=== PATIENT | male | born 1955 | race African-American/Black ===

== ENCOUNTER 2016-07-04 12:22 | Observation (INO) | payer OTHER ==
[~2016-07-04] VITALS: Ht 190.5 cm; Wt 104.3 kg
--- NOTE | 2016-07-04 12:24 | NUR ---
TO EKG [facility].
--- NOTE | 2016-07-04 12:30 | NUR ---
PT TO ED C/O RIGHT ARM NUMBNESS AND TINGLING SINCE LAST NIGHT. ALSO C/O SOME FACIAL NUMBNESS LAST NIGHT. STATES R ARM IS STILL "TINGLY" BUT DENIES ANY PAIN. NO FACIAL DROPP NOTED, SPEAKING IN FULL SENTENCES.
--- NOTE | 2016-07-04 12:45 | ED GENERAL ADULT ---
History of Present Illness General Chief Complaint: General Adult Stated Complaint: SIB FOR NUMBNESS IN RG ARM POSSIBLE STROKE Source: patient, EMS Exam Limitations: no limitations Vital Signs & Intake/Output Vital Signs & Intake/Output Vital Signs Date Time Temp Pulse Resp B/P Pulse O2 O2 Flow FiO2 Ox Delivery Rate 07/04 1254 98 Room Air 07/04 1230 97.0 70 20 157/90 96 Room Air Allergies Coded Allergies: No Known Allergies (07/04/16) Reconcile Medications Diclofenac Sodium 75 MG TABLET. 1 TAB PO PRN PRN ARTHRITIS (Reported) Simvastatin (Simvastatin*) 20 MG TABLET 1 TAB PO QPM CHOLESTEROL (Reported) Triage Note: PT TO ED C/O RIGHT ARM NUMBNESS AND TINGLING SINCE LAST NIGHT. ALSO C/O SOME FACIAL NUMBNESS LAST NIGHT. STATES R ARM IS STILL "TINGLY" BUT DENIES ANY PAIN. NO FACIAL DROPP NOTED, SPEAKING IN FULL SENTENCES. Triage Nurses Notes Reviewed? yes Onset: Abrupt Duration: day(s): Timing: recent history HPI: 07/04/16 1:23 PM 61-year-old man presents to the emergency department complaining of right arm numbness. According to the patient he was in his usual state of health until yesterday when he developed right-sided arm numbness approximately 1 PM. He also said that he had right-sided facial numbness and was dizzy. He said the symptoms lasted one to 2 hours. Over time they did resolve. Today he had a second episode of right sided arm numbness. Currently in the emergency department he has no symptoms. He denies chest pain, shortness of breath fever or other complaints. He does have a past medical history of hyperlipidemia. He has a past surgical history of neck and back surgery. He denies any drug allergies. He does not smoke. Occasionally drinks. He takes simvastatin. On physical exam he is hypertensive. He is very tall. He has good equal radial pulses. His neurological exam is normal he has a gag reflex and swallows water Past History Travel History Traveled to [place] past 21 day No Medical History Any Pertinent Medical History? see below for history Cardiovascular: hyperlipidemia Surgical History Surgical History: non-contributory Psychosocial History What is your primary language Albanian Tobacco Use: Never used ETOH Use: denies use Illicit Drug Use: denies illicit drug use Family History Hx Contributory? No Review of Systems Review of Systems Constitutional: Denies: fever. EENTM: Denies: visual changes. Respiratory: Denies: short of breath. Cardiovascular: Denies: chest pain. GI: Denies: abdominal pain. Genitourinary: Reports: no symptoms. Musculoskeletal: Reports: no symptoms. Skin: Reports: no symptoms. Neurological/Psychological: Reports: see HPI. Hematologic/Endocrine: Reports: no symptoms. Physical Exam Physical Exam General Appearance: well developed/nourished, alert, awake, anxious, mild distress Head: atraumatic, normal appearance Eyes: Bilateral: normal appearance, PERRL, EOMI. Ears, Nose, Throat: normal pharynx, normal ENT inspection Neck: normal inspection, supple, full range of motion Respiratory: normal breath sounds, chest non-tender, no respiratory distress Cardiovascular: regular rate/rhythm Peripheral Pulses: 4+ radial (R), 4+ radial (L) Gastrointestinal: soft, non-tender Back: normal range of motion Extremities: normal inspection, normal range of motion, no edema Neurologic/Psych: no motor/sensory deficits, awake, alert, oriented x 3 Skin: intact, normal color, warm/dry Core Measures ACS in differential dx? No CVA/TIA Diagnosis: Yes Severe Sepsis Present: No Septic Shock Present: No Progress Differential Diagnoses I considered the following diagnoses in my evaluation of the patient: [TIA, CVA, cervical radiculopathy, carotid artery dissection] Plan of Care: Orders Procedure Date/time Status Heart Healthy Diet 07/04 D Active URINALYSIS 07/04 1544 Active Pathway - chart 07/04 1535 Active Pathway - chart 07/04 1534 Active House Staff 07/04 1534 Active Patient Data 07/04 1534 Active Lab Add-on Test 07/04 1534 Active Code Status 07/04 1534 Active ECHOCARDIOGRAM 07/[address] in observation 07/04 1523 Active Vital Signs 07/04 1523 Active Code Status 07/04 1523 Complete Patient Data 07/04 1453 Active LIPID PANEL 07/04 1333 Complete TROPONIN LEVEL 07/04 1315 Complete PROTHROMBIN TIME 07/04 1315 Complete GLYCOSYLATED HGB 07/04 1315 Active COMPREHENSIVE METABOLIC PANEL 07/04 1315 Complete CBC WITHOUT DIFFERENTIAL 07/04 1315 Complete NIH Stroke Scale 07/04 1252 Active Intake & Output 07/04 1252 Active EKG 07/04 1224 Active VTE Mechanical Prophylaxis 07/04 UNK Active Telemetry/Loader 07/04 UNK Active Nursing Misc 07/04 UNK Active CMS- Neurovascular Checks 07/04 UNK Active PHYSICIAN CONSULT 07/[address] NECK ANGIOGRAM 07/04 UNK Active Current Medications Sig/Geoffrey Start time Last Medication Dose Stop Time Status Admin Aspirin 81 MG DAILY 07/05 1000 AC (Aspirin) Enoxaparin Sodium 40 MG DAILY 07/05 1000 AC (Lovenox) Atorvastatin Calcium 40 MG 1700 07/04 1700 AC (Lipitor) Acetaminophen 650 MG Q6P PRN 07/04 1600 AC (Tylenol) Laboratory Tests 07/04/16 1333: Anion Gap 10, Estimated GFR > 60, BUN/Creatinine Ratio 15.0, Glucose 86, Calcium 9.5, Total Bilirubin 0.6, AST 20, ALT 28, Alkaline Phosphatase 73, Troponin I < 0.01, Total Protein 7.4, Albumin 4.2, Globulin 3.2, Albumin/Globulin Ratio 1.3, Triglycerides 105, Cholesterol 179, LDL Cholesterol, Calc 113, HDL Cholesterol 45, Cholesterol/HDL Ratio 4, PT 12.2, INR 1.16, CBC w Diff NO MAN DIFF REQ, RBC 5.27, MCV 84.2, MCH 28.1, RDW 13.7, MPV 9.1, Gran % 47.8, Lymphocytes % 30.6, Monocytes % 16.9 H, Eosinophils % 4.1, Basophils % 0.6, Absolute Granulocytes 2.1, Absolute Lymphocytes 1.3, Absolute Monocytes 0.7 H, Absolute Eosinophils 0.2, Absolute Basophils 0, PUBS MCHC 33.4 07/04/16 1315: Hemoglobin A1c Pending Initial ED EKG: NSR Comments: Head CT negative. PATIENT: BERNICE DRISCOLL PRESENT AGE: 61 PATIENT ACCOUNT NO: [id number] : 54 LOCATION: [facility] ORDERING PHYSICIAN: GARRISON HUSSEIN DO SERVICE DATE: 07/04/16 EXAM TYPE: CAT - CT CERV SPINE WO IV CONTRAST; CT HEAD WO IV CONTRAST EXAMINATION: CT HEAD W/O IV CONTRAST CT CERVICAL SPINE W/O IV CONTRAST CLINICAL INFORMATION: 61-year-old male with right arm numbness. Possible cerebrovascular accident. COMPARISON: None TECHNIQUE: Head - Contiguous axial imaging of the head was performed from the skull base to the vertex without the administration of intravenous contrast, and axial images reconstructed at 0.625 mm , 2.5 mm and 5 mm slice thickness. Cervical spine - Volumetric, helical CT acquisition of the cervical spine was obtained without contrast; in addition to the standard set of axial images, multiplanar reformatted images were provided in the coronal and sagittal imaging planes. DLP: 979 mGy-cm (total) FINDINGS: HEAD: The ventricles have normal size and configuration. The sulci and basilar cisterns are unremarkable. There are no extra-axial fluid collections. No evidence of acute intracranial hemorrhage, territorial infarction, abnormal mass effect or midline shift. Pagan to white matter differentiation is well preserved. There is ossification along the falx. The calvarium is intact and the visualized paranasal sinuses, mastoid air cells and middle ear cavities are clear. The temporomandibular joints are unremarkable. The visualized orbits and globes are intact. CERVICAL SPINE: The cervical vertebral have normal height and alignment. No acute fracture, subluxation or prevertebral edema. The occipital condyles, atlas, axis and atlantoaxial articulation are intact. The C2-C3 and C3-C4 disc spaces are maintained. At C4-C5, there is minimal disc space narrowing, traction osteophyte formation, and suggestion of a small left paracentral disc protrusion. There is no significant narrowing of the central spinal canal. The left-sided facet hypertrophy causes mild left foraminal stenosis at this level. The patient is status post discectomy and solid fusion at C5-C6. At C6-C7, there is mild degenerative disc space narrowing, minimal disc bulge, traction osteophyte formation and uncovertebral joint hypertrophy. Small uncovertebral joint osteophytes produce mild bilateral foraminal stenosis at this level. At C7-T1, there is minimal uncovertebral joint hypertrophy without significant narrowing of the central canal or neural foramina. No paraspinal soft tissue mass or paraspinal fluid collection. Thyroid gland is unremarkable. The visualized lung apices are normal. IMPRESSION: 1. No acute intracranial pathology. 2. No acute fracture or malalignment in the cervical spine. 3. No evidence of significant central spinal canal or neural foraminal stenosis within the mildly degenerated spine. 4. Status post discectomy and fusion at C5-C6. DICTATED BY: GIOVANNI CORONEL MD DATE/TIME DICTATED:07/04/161343 CAMERA REPAIRER:ABDIRAHMAN DATE/TIME TRANSCRIBED:07/04/161343 CONFIDENTIAL, DO NOT COPY WITHOUT APPROPRIATE AUTHORIZATION. <Electronically signed in Other Vendor System> SIGNED BY: GIOVANNI CORONEL MD 07/04/16 9231 Departure Departure Disposition: STILL A PATIENT Condition: Stable Clinical Impression Primary Impression: TIA (transient ischemic attack) Referrals: GENNA COX DO (PCP/Family) Departure Forms: Customer Survey General Discharge Information Comments The patient has a gag reflex and tolerated water. Observation Note Spoke With: ETELVINA LAMA,RVAEN Physician Advisor Notified: YESENIA LAMA,RICKY [facility] Patient In: Non-ED OBS Care Area Rationale for Observation: My rational for observation is as follows [the patient needs neurology consultation, neuro checks every 6 hours, telemetry monitoring]. Critical Care Note Critical Care Note Critical Care Time: non-applicable
[2016-07-04] MEDS ORDERED: SIMVASTATIN20 M2 PO (12:53)
[2016-07-04] MEDS ORDERED: DICLOFENAC SODI75 M2 PO (12:53)
--- NOTE | 2016-07-04 12:55 | NUR ---
61 YEAR OLD MALE STATES THAT HE WENT TO A SPIN CLASS YESTERDAY AND AFTER THE CLASS HE NOTED THAT HE WAS HAVING R ARM NUMBNESS, FELT LIKE THE RIGHT SIDE OF HIS MOUTH HAD NOVACAINE INJECTED INTO IT , DENIES ANY SLURRED SPEECH, ALSO STATES THAT HE HAD NUMBNESS IN HIS R ARM, PT STATES THAT HE HAS A HISTORY OF NECK AND BACK SURGERY , DENIES CP/SOB/ABD PAIN OR ANY URINARY SYMPTOMS. NIH SCALE 0 AT THIS TIME, SPEECH CLEAR. DR HUSSEIN AT BEDSIDE. PT DENIES ANY HEADACHES
--- NOTE | 2016-07-04 13:19 | NUR ---
PT TO CT SCAN
[2016-07-04 13:50] LABS: ABSOLUTE BASOPHIL COUNT 0 /CUMM (0.0-0.2); ABSOLUTE EOSINOPHIL COUNT 0.2 /CUMM (0.0-0.7); ABSOLUTE GRANULOCYTE CT 2.1 /CUMM (1.4-6.5); ABSOLUTE LYMPH COUNT 1.3 /CUMM (1.2-3.4); ABSOLUTE MONOCYTE COUNT 0.7 /CUMM (0.10-0.60); BASOPHIL % 0.6 % (0.0-2.0); EOSINOPHIL % 4.1 % (0-5); GRANULOCYTE % 47.8 % (42.2-75.2); HEMATOCRIT 44.4 % (42-52); MEAN CORPUSCULAR HGB 28.1 PG (27.0-31.0); MEAN CORPUSCULAR HGB CONC 33.4 G/DL (33.0-37.0); MEAN CORPUSCULAR VOLUME 84.2 FL (80.0-94.0); MEAN PLATELET VOLUME 9.1 FL (7.4-10.4); PLATELET COUNT 194 /CUMM (130-400); RBC DISTRIBUTION WIDTH 13.7 % (11.5-14.5); RED BLOOD CELL CT 5.27 /CUMM (4.70-6.10); WHITE BLOOD CELL COUNT 4.4 /CUMM (4.8-10.8)
[2016-07-04 13:52] LABS: PT 12.2 SEC (9.4-12.5)
--- NOTE | 2016-07-04 13:58 | CT SCAN REPORT ---
EXAMINATION: CT HEAD W/O IV CONTRAST CT CERVICAL SPINE W/O IV CONTRAST CLINICAL INFORMATION: 61-year-old male with right arm numbness. Possible cerebrovascular accident. COMPARISON: None TECHNIQUE: Head - Contiguous axial imaging of the head was performed from the skull base to the vertex without the administration of intravenous contrast, and axial images reconstructed at 0.625 mm , 2.5 mm and 5 mm slice thickness. Cervical spine - Volumetric, helical CT acquisition of the cervical spine was obtained without contrast; in addition to the standard set of axial images, multiplanar reformatted images were provided in the coronal and sagittal imaging planes. DLP: 979 mGy-cm (total) FINDINGS: HEAD: The ventricles have normal size and configuration. The sulci and basilar cisterns are unremarkable. There are no extra-axial fluid collections. No evidence of acute intracranial hemorrhage, territorial infarction, abnormal mass effect or midline shift. Pagan to white matter differentiation is well preserved. There is ossification along the falx. The calvarium is intact and the visualized paranasal sinuses, mastoid air cells and middle ear cavities are clear. The temporomandibular joints are unremarkable. The visualized orbits and globes are intact. CERVICAL SPINE: The cervical vertebral have normal height and alignment. No acute fracture, subluxation or prevertebral edema. The occipital condyles, atlas, axis and atlantoaxial articulation are intact. The C2-C3 and C3-C4 disc spaces are maintained. At C4-C5, there is minimal disc space narrowing, traction osteophyte formation, and suggestion of a small left paracentral disc protrusion. There is no significant narrowing of the central spinal canal. The left-sided facet hypertrophy causes mild left foraminal stenosis at this level. The patient is status post discectomy and solid fusion at C5-C6. At C6-C7, there is mild degenerative disc space narrowing, minimal disc bulge, traction osteophyte formation and uncovertebral joint hypertrophy. Small uncovertebral joint osteophytes produce mild bilateral foraminal stenosis at this level. At C7-T1, there is minimal uncovertebral joint hypertrophy without significant narrowing of the central canal or neural foramina. No paraspinal soft tissue mass or paraspinal fluid collection. Thyroid gland is unremarkable. The visualized lung apices are normal. IMPRESSION: 1. No acute intracranial pathology. 2. No acute fracture or malalignment in the cervical spine. 3. No evidence of significant central spinal canal or neural foraminal stenosis within the mildly degenerated spine. 4. Status post discectomy and fusion at C5-C6.
--- NOTE | 2016-07-04 15:03 | History & Physical ---
DOLLY LOPEZ MD 07/04/16 1457: General Information and HPI Source of Information: patient, old records History of Present Illness: Patient is a 61-year-old male with past medical history of hyperlipidemia on atorvastatin, Right L5-S1 Microdiscectomy (05/30/2003), Cervical radiculopathy s /p C5-C6 anterior cervical diskectomy and fusion (01/20/2012), presented with chief complaint of right arm and facial numbness from one day. Patient claims that he was all right yesterday morning. One hour after coming from the spin class, he felt an episode of tingling and numbness on right side of face and right side of the upper limb. It was lasted for 30 minutes to 1 hour.He recovered completely without any residual weakness.He had this episodes 2 times yesterday and one time today, so he came to the emergency department for further evaluation and management.He also had an episode of dizziness when he changes his position from sitting to standing and when riding upstairs. Denies fever, chills, nausea, vomiting, headache, blurry vision, dehydration, trauma, weakness in any part of the body, confusion, chest pain, neck pain, stroke, hypertension. PMH - Hyperlipidemia Right L5-S1 Microdiscectomy 05/30/2003 Cervical radiculopathy s/p C5-C6 anterior cervical diskectomy and fusion 2011 Allergies-NKDA Personal history -denies smoking. 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 EENTM: Denies: no symptoms. Cardiovascular: Denies: no symptoms. Respiratory: Denies: no symptoms. GI: Denies: no symptoms. Genitourinary: Reports: frequency. Musculoskeletal: Denies: no symptoms. Skin: Denies: no symptoms. Neurological/Psychological: Reports: paresthesia, tingling. Exam & Diagnostic Data Last 24 Hrs of Vital Signs/I&O Vital Signs Date Time Temp Pulse Resp B/P Pulse O2 O2 Flow FiO2 Ox Delivery Rate 07/04 1850 98.3 74 18 142/90 96 Room Air 07/04 1846 Room Air 07/04 1818 97.4 68 18 166/90 97 Room Air Room Air 07/04 1609 97.8 66 18 162/88 97 Room Air Room Air 07/04 1254 98 Room Air 07/04 1230 97.0 70 20 157/90 96 Room Air Intake & Output 07/04 1600 07/04 0800 07/04 0000 Intake Total 0 Output Total Balance 0 Intake, Oral 0 Patient 104.326 kg Weight Physical Exam General Appearance Alert, Oriented X3, Cooperative, No Acute Distress Skin No Rashes, No Breakdown HEENT Atraumatic, PERRLA, EOMI Neck Supple, No JVD Cardiovascular Regular Rate, Normal S1, Normal S2 Lungs Clear to Auscultation, Normal Air Movement Abdomen Soft, No Tenderness Neurological Normal Gait, Normal Speech, Strength at 5/5 X4 Ext, Normal Tone, Sensation Intact, Cranial Nerves 3-12 NL, Reflexes 2+ Extremities No Clubbing, No Cyanosis, No Edema Vascular Normal Pulses, Pulses Symmetrical Assessment/Plan Assessment: Patient is a 61-year-old male with past medical history of hyperlipidemia on atorvastatin, Right L5-S1 Microdiscectomy (05/30/2003), Cervical radiculopathy s /p C5-C6 anterior cervical diskectomy and fusion (01/20/2012), presented with chief complaint of right arm and facial numbness from one day. Vital signs at the time of admission -temperature 90.7, pulse 70, respiratory rate 20, blood pressure 157/90, SPO2 96% on room air. Imaging CT head w/o IV contrast CT cervical spine w/o IV contrast 1. No acute intracranial pathology. 2. No acute fracture or malalignment in the cervical spine. 3. No evidence of significant central spinal canal or neural foraminal stenosis within the mildly degenerated spine. 4. Status post discectomy and fusion at C5-C6. Problem list - TIA under evaluation Hyperlipidemia Right L5-S1 Microdiscectomy 05/30/2003 Cervical radiculopathy s/p C5-C6 anterior cervical diskectomy and fusion 2011 Plan- * We did CT scan which shows no any acute changes including hemorrhage * We will start patient on aspirin 325mg OD PC * We will start patient on high-dose atorvastatin, 80mg OD PC HS * We will allow permissive hypertension,that means we will treat if patient will have BP >220/120. We will start patient on high-dose lisinopril 10mg OD after 24 hours * Neurochecks every Q4 * We will do MRI Brain to rule out stroke. As the patient has history of claustrophobia even. He denies to go to MRI because of claustrophobia. We convinced him and told that we can give him some sedation so that he will have less chance of it. We will give inj Ativan 1mg IV just before MRI. * We will do carotid Doppler to rule out any obstruction, thrombus in carotid arteries * We will do echocardiogram to rule out any cardiac causes of TIA * We placed neurologic consult and follow their recommendation * We will check HbA1c as he has significant family history of diabetes * We will do urinalysis as he was complaining of frequency of urination * Diet-low fat, heart healthy diet * DVT prophylaxis- ALPS/heparin * CODE STATUS- full code As Ranked By This Provider Problem List: 1. TIA (transient ischemic attack) 2. Hyperlipidemia 3. H/O microdiscectomy Core Measures/Miscellaneous Acute Coronary Syndrome ACS Diagnosis: No Cerebrovascular Accident CVA/TIA Diagnosis: Yes NIH Stroke Scale: Total 0 Congestive Heart Failure CHF Diagnosis: No Venous Thromboembolism VTE Risk Factors: Age > 40 VTE Prophylaxis Ordered Inpt: Mechanical (ALPS/TEDS) [facility] prophylaxis d/t: No contraindications No VTE Pharm Prophylaxis d/t: No contraindications VTE Diagnosis: No VTE Type: NONE VTE Confirmed by (Test): NONE Severe Sepsis Severe Sepsis Present: No Septic Shock Septic Shock Present: No Miscellaneous Documentation Attending Case Discussed With: PREET LAMA,ALEJANDRO Haley Primary Care Physician: GENNA COX DO Patient sees these Specialists no one Level of Patient Care: Telemetry CHRISTOPHER CARRILLO MD 07/04/16 1537: Resident Review Statement Resident Statement: examined this patient, discussed with application development intern, agreed with application development intern Other Findings: 61 y/o male with PMH of HLD and surgeries to the neck and back presenting to the ED with right arm numbness and tingling with right sided facial numbness after spin class yesterday. He had another episode of right arm numbness again yesterday. There was complete resolution of symptoms before the next episode. He had a 3rd episode of right arm numbness today which prompted him to come to the ED. He denies any involuntary movements, confusion, bowel or bladder incontinence, headaches, chest pain, palpitations etc. Has no symptoms while in the ED. Vitals in the ED: 97.0/70/20/157/90/96% on RA Exam: Neurologically intact CV: S1S2 heard, RRR Lungs: BCTA CT Head without contrast shows no acute intracranial pathology Problem List: * Rt arm numbness and tingling with facial numbness, now resolved R/O Stroke from ischemia vs carotid artery dissection vs vertebral artery dissection * Currently Hypertensive * Hyperlipidemia * Orthostatic Hypotension * Back and neck surgeries Plan: * Admit to telemetry for observation * Neurochecks Q4 * Permissive HTN for now (treat only above 220/120) * Aspirin and Statin * MRI Head, CTA neck, Carotid Dopplers, ECHO * Patient had claustrophobia and will be given 1 mg IV ativan before he goes to MRI * DVT PPx: SubQ Lovenox * Pain Pathway: Tylenol PRN * Code Status: Full Code ALEJANDRO OVIEDO MD 07/04/16 1613: Attending MD Review Statement Attending Statement Attending MD Statement: examined this patient, discuss w/resident/PA/MAILING MANAGER, agreed w/resident/PA/MAILING MANAGER, reviewed EMR data (avail), reviewed images Attending Assessment/Plan: 61 year old male with PMH hyperlipidemia on a statin here with acute episode of right arm numbness and ?weakness. BP on presentation is high with orthostatic hypotension. Given acuity of syx and recent spin class, will bring in to tele and treat for supecetd TIA. MRI (with ativan as pt is very claustrophobic), Echo and Asa and statin. Neurology consult. Given recent vigorous physical activity, will get CTA of the neck to look for carotid/verterbral a dissection. Neurochecks q 4, check HGBa1c, check UA and DVT prophylaxis.
--- NOTE | 2016-07-04 15:11 | NUR ---
PT UP TO USE URINAL AT THIS TIME.
--- NOTE | 2016-07-04 15:32 | NUR ---
PT CARE ASSUMED BY THIS RN AT THIS TIME. HOUSE STAFF TO BEDSIDE FOR EVAL. HEART HEALTHY TRAY ORDERED FOR PT.
--- NOTE | 2016-07-04 16:06 | NUR ---
PT TO US VIA STRETCHER AT THIS TIME.
--- NOTE | 2016-07-04 16:08 | RADIOLOGY REPORT ---
EXAMINATION: XR PORTABLE CHEST CLINICAL INFORMATION: Weakness. Rule out mass COMPARISON: 09/16/2014 TECHNIQUE: Portable view of the chest was obtained. FINDINGS: There are degenerative changes of the first costosternal junction bilaterally. 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 No focal consolidation or mass. No pleural effusion or pneumothorax. Normal pulmonary vascularity. Normal heart size. Regional skeleton intact. IMPRESSION: No acute pulmonary disease. No significant change from prior study.
--- NOTE | 2016-07-04 16:26 | NUR ---
PT ROOM ASSIGNMENT 180 BED 1 NURSE INFORMED
--- NOTE | 2016-07-04 16:37 | NUR ---
HOUSE STAFF TO BEDSIDE TO DISCUSS MRI WITH PT.
--- NOTE | 2016-07-04 16:47 | NUR ---
PT AGREEABLE TO MRI AT THIS TIME. UNABLE TO CONTACT MRI AT THIS TIME CALLED BOTH [phone] AND [phone] MULTIPLE TIMES WITH NO RESPONSE. ECHO AT BEDSIDE AT THIS TIME. HOUSE STAFF AWARE THAT THIS RN WAS NOT ABLE TO REACH MRI AT THIS TIME.
--- NOTE | 2016-07-04 16:56 | ULTRASOUND REPORT ---
EXAMINATION: US DUPLEX CAROTID AND VERTEBRAL CLINICAL INFORMATION: Right hand numbness and tingling. Facial numbness. Stroke evaluation. COMPARISON: None. TECHNIQUE: Real-time ultrasound and Doppler techniques (integrating B-mode 2D vascular images, Doppler spectral analysis and color flow Doppler imaging) were utilized to interrogate the extracranial carotid and vertebral arteries bilaterally. The degree of stenosis determined by criteria similar to NASCET. FINDINGS: RIGHT VESSELS - There is normal antegrade flow within the carotid and vertebral arteries. The grayscale images show widely patent carotid vessels. No evidence of ulcerated plaque or focal stenosis. Doppler derived peak systolic velocity measurements (cm/sec) were as follows: Distal CCA: 66 ICA: 108 (with end diastolic of 35) ECA: 80 Vertebral: 39 ICA/CCA ratio is 1.64 LEFT VESSELS - There is normal antegrade flow within the carotid and vertebral arteries. The grayscale images show widely patent carotid vessels. No evidence of ulcerated plaque or focal stenosis. Doppler derived peak systolic velocity measurements (cm/sec) were as follows: Distal CCA: 93 ICA: 106 (with end diastolic of 29) ECA: 70 Vertebral: 51 ICA/CCA ratio is 1.14 IMPRESSION: There is normal, antegrade flow within the examined vessels of the neck. No evidence of atherosclerotic disease or hemodynamically significant ICA stenosis.
--- NOTE | 2016-07-04 18:17 | NUR ---
PT TO AND FROM CAT SCAN VIA STRETCHER AT THIS TIME. REPORT GIVEN TO MARIN MONTES. DISTRIBUTION CALLED FOR PT TRANSPORT.
[2016-07-04 18:50] VITALS: BP 142/90
--- NOTE | 2016-07-04 19:36 | CT SCAN REPORT ---
EXAMINATION: CT ANGIOGRAM NECK CLINICAL INFORMATION: Right upper extremity tingling and numbness. Facial numbness. COMPARISON: Cervical spine CT scan same day. TECHNIQUE: Test bolus sequences followed by administration of 95 mL of Optiray 350 intravenous contrast. Helical imaging was performed in the axial plane of the neck. The data was processed at the human performance technologist workstation for generation of MIP sequences. Three-dimensional volume rendered reformatted images were also generated at an offline 3-D workstation. DLP: 1199.58 mGy-cm. FINDINGS: The aortic arch apex is normal and the origins of the major aortic branches are widely patent. Common carotid arteries and carotid bifurcations are normal. There is no internal carotid artery stenosis. The cervical segments of the vertebral arteries as well as their origins are widely patent. The petrous, cavernous, and supraclinoid segments of internal carotid arteries are normal. The intradural vertebral artery segments and basilar artery are normal. There is mild focal narrowing of the segment of the left posterior cerebral artery best visualized on sagittal MIP image 108 of 190 series 202. The visualized portions of the anterior, middle, and posterior cerebral artery complexes are otherwise unremarkable. There is no high-grade stenosis or proximal large vessel occlusion. Soft tissues of the neck including the thyroid gland are normal. Lung apices are clear. Chronic changes of an anterior cervical discectomy and fusion at C5-C6. There is mild junctional spondylosis above and below the fusion. There appears be at least mild canal stenosis at the levels of C4-C5 and C6-C7. Limited visualization of the intracranial structures reveals no abnormal finding. Specifically there is no midline shift or hydrocephalus. No mastoid or middle ear effusion. Paranasal sinuses are well-aerated. IMPRESSION: Unremarkable CT angiogram of the neck. Limited visualization of the intracranial vessels demonstrates mild focal narrowing of the P2 segment of the left posterior cerebral artery. Otherwise no high-grade stenosis or proximal large vessel occlusion within the intracranial vessels. There are chronic changes of an anterior cervical discectomy and fusion at C5-C6 with mild junctional spondylosis above and below the fusion. If there is a clinical concern for compressive myelopathy then a dedicated cervical spine MRI should be obtained.
--- NOTE | 2016-07-04 19:39 | ECHOCARDIOGRAM REPORT ---
BERNICE DRISCOLL Age: 61 : 1955 Gender: M Exam Date: 07/04/2016 16:49 Exam Location: ER Ht (in): 75 Wt (lb): 230 BSA: 2.37 BP: 157 / 90 Ordering Physician: CHRISTOPHER CARRILLO MD Referring Physician: CHRISTOPHER CARRILLO MD Technologist: Zenobia Davila RDCS Room Number: ER#12 Indications: LIGHTHEADEDNESS Rhythm: Sinus Technical Quality: Fair, Technically difficult study FINDINGS Left Ventricle Normal size left ventricle. No obvious regional wall motion abnormalities. Left ventricular wall thickness increased. Normal left ventricular ejection fraction estimated at 55-60%. Right Ventricle Normal right ventricular size and function. Right Atrium Normal right atrial size. Left Atrium Mild left atrial dilatation. Mitral Valve Mitral valve thickened. Trace to mild mitral regurgitation. Aortic Valve Trileaflet aortic valve. Diffuse thickening (sclerosis) of the aortic valve cusps without reduced excursion. No aortic stenosis. No aortic regurgitation. Tricuspid Valve Tricuspid valve not well visualized, grossly normal. Trace to mild tricuspid regurgitation. Right ventricular systolic pressure estimated at 24 mmHg. Pulmonic Valve Structurally normal pulmonic valve. Mild pulmonic regurgitation. Pericardium No pericardial effusion. Great Vessels Normal size aortic root and proximal ascending aorta. CONCLUSIONS 1. This was a technically difficult examination. 2. Mild aortic sclerosis is present with no valvular stenosis or insufficiency. 3. Mild mitral leaflet thickening is present with minimal to mild mitral insufficiency and mild left atrial enlargement. 4. There is no pericardial fluid detected. 5. The left ventricular chamber size and systolic function are normal with mild concentric hypertrophy and no resting wall motion abnormalities. 6. Minimal to mild tricuspid and pulmonic insufficiency are present with no evidence of pulmonary hypertension. Nadia Hensley M.D. (Electronically Signed) Final Date: 04 July 2016 19:39 MEASUREMENTS (Male / Female) Normal Values 2D ECHO LV Diastolic Diameter PLAX 3.8 cm 4.2 - 5.9 / 3.9 - 5.3 cm LV Systolic Diameter PLAX 2.3 cm 2.1 - 4.0 cm LV Fractional Shortening PLAX 39.5 % 25 - 46 % LV Ejection Fraction 2D Teich 70.8 % IVS Diastolic Thickness 1.4 cm LVPW Diastolic Thickness 1.4 cm LV Relative Wall Thickness 0.7 RV Internal Dim ED PLAX 2.4 cm 1.9 - 3.8 cm LVOT Diameter 2.0 cm Aortic Root Diameter 3.3 cm LA Systolic Diameter LX 3.3 cm 3.0 - 4.0 / 2.7 - 3.8 cm LA Volume 24.0 cm 18 - 58 / 22 - 52 cm Ascending Aorta Diameter 3.3 cm DOPPLER AV Peak Velocity 133.0 cm/s AV Peak Gradient 7.1 mmHg AV Mean Velocity 93.3 cm/s AV Mean Gradient 4.0 mmHg AV Velocity Time Integral 27.8 cm LVOT Peak Velocity 129.0 cm/s LVOT Peak Gradient 6.7 mmHg LVOT Mean Velocity 82.7 cm/s LVOT Mean Gradient 3.0 mmHg LVOT Velocity Time Integral 27.5 cm LVOT Stroke Volume 86.4 cm AV Area Cont Eq vti 3.1 cm AV Area Cont Eq pk 3.0 cm MV Peak Velocity 94.4 cm/s MV Peak Gradient 3.6 mmHg MV Mean Velocity 51.8 cm/s MV Mean Gradient 1.0 mmHg Mitral E Point Velocity 82.9 cm/s Mitral A Point Velocity 90.3 cm/s Mitral E to A Ratio 0.9 MV PHT Velocity 79.4 cm/s MV Deceleration Piute 313.0 cm/s MV Pressure Half Time 76.1 ms MV Area PHT 2.9 cm MV Deceleration Time 259.0 ms TR Peak Velocity 208.0 cm/s TR Peak Gradient 17.3 mmHg Right Atrial Pressure 5.0 mmHg Pulmonary Artery Systolic Pressu 22.3 mmHg Right Ventricular Systolic Press 22.3 mmHg PV Peak Velocity 120.0 cm/s PV Peak Gradient 5.8 mmHg PV Mean Velocity 69.8 cm/s PV Mean Gradient 2.0 mmHg PV Velocity Time Integral 22.7 cm LV E' Lateral Velocity 16.7 cm/s Mitral E to LV E' Lateral Ratio 5.0 LV E' Septal Velocity 5.7 cm/s Mitral E to LV E' Septal Ratio 14.7
--- NOTE | 2016-07-04 19:42 | Cons- Neurology ---
See Addendum General Information and HPI Consulting Request Date of Consult: 07/04/16 Requested By: PREET LAMA,ALEJANDRO Haley Reason for Consult: Tingling and numbness in the right arm Source of Information: patient, old records Exam Limitations: no limitations History of Present Illness: This is a pleasant 61 year old right handed man who came on his own volition today to the ER after developing recurrent episodes of tingling and numbness in his right arm. This started the other day with a numbing, tingling and slightly painful sensation in his arm. He denies any weakness. The sensation was also accompanied by some heavy novocaine feeling in the right lower face. The leg was not involved. This recurred again today at one time lasting close to 2 hours before improving. He denies any other focal symptoms, headaches, or other constitutional symptoms. He denies any cardiovascular risk factors other than hyperlipidemia. His BP was elevated to 157 sysolic on arrival. Allergies/Medications Allergies: Coded Allergies: No Known Allergies (07/04/16) Home Med List: Diclofenac Sodium 75 MG TABLET.DR 1 TAB PO PRN PRN ARTHRITIS (Reported) Simvastatin (Simvastatin*) 20 MG TABLET 1 TAB PO QPM CHOLESTEROL (Reported) Current Medications: Current Medications Sig/Geoffrey Start time Last Medication Dose Route Stop Time Status Admin Acetaminophen 650 MG Q6P PRN 07/04 1600 AC PO Acetaminophen 650 MG Q6P PRN 07/04 1545 DC PO Aspirin 81 MG DAILY 07/05 1000 DC PO Aspirin 81 MG DAILY 07/05 1000 AC PO Aspirin 0 .STK-MED ONE 07/04 1612 DC PO Aspirin 325 MG ONCE ONE 07/04 1545 DC PO 07/04 1546 Aspirin 325 MG ONCE ONE 07/04 1545 DC 07/04 PO 07/04 1546 1620 Atorvastatin Calcium 40 MG 1700 07/04 1700 DC PO Atorvastatin Calcium 40 MG 1700 07/04 1700 AC 07/04 PO 1620 Enoxaparin Sodium 40 MG DAILY 07/05 1000 AC SC Lorazepam 0 .STK-MED ONE 07/04 1612 DC .ROUTE Lorazepam 1 MG ONCE ONE 07/04 1545 DC IV 07/04 1546 Lorazepam 1 MG ONCE ONE 07/04 1545 DC IV 07/04 1546 Review of Systems Review of Systems: Has had previous leg paresthesias and previous radicular pain in his arms and legs, s/p operations at both cervical and lumbar levels. Past History Travel History Traveled to [place] past 21 day No Medical History Blood Transfusion Hx: No Cardiovascular: hyperlipidemia Surgical History Surgical History: right L5 S1 microdiscectomy cervical radiculopathy C5-C6 anterior cervical diskectomy Psychosocial History Smoking Status: Never Smoked ETOH Use: denies use Illicit Drug Use: denies illicit drug use Exam & Diagnostic Data Vital Signs and I&O Vital Signs Date Time Temp Pulse Resp B/P Pulse O2 O2 Flow FiO2 Ox Delivery Rate 07/04 1850 98.3 74 18 142/90 96 Room Air 07/04 1846 Room Air 07/04 1818 97.4 68 18 166/90 97 Room Air Room Air 07/04 1609 97.8 66 18 162/88 97 Room Air Room Air 07/04 1254 98 Room Air 07/04 1230 97.0 70 20 157/90 96 Room Air Intake & Output 07/04 1600 07/04 0800 07/04 0000 Intake Total 0 Output Total Balance 0 Intake, Oral 0 Patient 230 lb Weight Physical Exam: Alert and oriented x3. Fluent and comprehends, can repeat. Attention and concentration are intact. Memory normal and exhibits a good fund of knowledge. S1 and S2 normal. RRR. EOMI, EDWIN, no nystagmus, face symmetric, V1-V3 sensation is normal and equal. Tongue and uvula midline. Hearing intact. VF full. TPZ strong. Strength is 5/5 throughout the proximal and distral distributions of the arms and legs. No sensory losses. FNF is normal. Reflexes are symmetric with downgoing toes. Last 48 Hours of Lab Results: Laboratory Tests 07/04 07/04 1333 1315 Chemistry Sodium (137 - 145 mmol/L) 142 Potassium (3.5 - 5.1 mmol/L) 4.4 Chloride (98 - 107 mmol/L) 104 Carbon Dioxide (22 - 30 mmol/L) 28 Anion Gap (5 - 16) 10 BUN (9 - 20 mg/dL) 15 Creatinine (0.7 - 1.2 mg/dL) 1.0 Estimated GFR (>60 ml/min) > 60 BUN/Creatinine Ratio (7 - 25 %) 15.0 Glucose (65 - 99 mg/dL) 86 Hemoglobin A1c Pending Calcium (8.4 - 10.2 mg/dL) 9.5 Total Bilirubin (0.2 - 1.3 mg/dL) 0.6 AST (17 - 59 U/L) 20 ALT (21 - 72 U/L) 28 Alkaline Phosphatase (< 127 U/L) 73 Troponin I (<0.11 ng/ml) < 0.01 Total Protein (6.3 - 8.2 g/dL) 7.4 Albumin (3.5 - 5.0 g/dL) 4.2 Globulin (1.9 - 4.2 gm/dL) 3.2 Albumin/Globulin Ratio (1.1 - 2.2 %) 1.3 Triglycerides (<150 mg/dL) 105 Cholesterol (< 200 MG/DL) 179 LDL Cholesterol, Calc (65 - 129 mg/dL) 113 HDL Cholesterol (40 - 60 mg/dL) 45 Cholesterol/HDL Ratio (0.00 - 4.88 %) 4 Coagulation PT (9.4 - 12.5 SEC) 12.2 INR (0.90 - 1.17) 1.16 Hematology CBC w Diff NO MAN DIFF REQ WBC (4.8 - 10.8 /CUMM) 4.4 L RBC (4.70 - 6.10 /CUMM) 5.27 Hgb (14.0 - 18.0 G/DL) 14.8 Hct (42 - 52 %) 44.4 MCV (80.0 - 94.0 FL) 84.2 MCH (27.0 - 31.0 PG) 28.1 RDW (11.5 - 14.5 %) 13.7 Plt Count (130 - 400 /CUMM) 194 MPV (7.4 - 10.4 FL) 9.1 Gran % (42.2 - 75.2 %) 47.8 Lymphocytes % (20.5 - 51.1 %) 30.6 Monocytes % (1.7 - 9.3 %) 16.9 H Eosinophils % (0 - 5 %) 4.1 Basophils % (0.0 - 2.0 %) 0.6 Absolute Granulocytes (1.4 - 6.5 /CUMM) 2.1 Absolute Lymphocytes (1.2 - 3.4 /CUMM) 1.3 Absolute Monocytes (0.10 - 0.60 /CUMM) 0.7 H Absolute Eosinophils (0.0 - 0.7 /CUMM) 0.2 Absolute Basophils (0.0 - 0.2 /CUMM) 0 PUBS MCHC (33.0 - 37.0 G/DL) 33.4 Imaging/Other Studies: NCHCT is unrevealing. Assessment/Plan Assessment: 61 year old man nonsmoker with no cardiovascular risk factors outside of hyperlipidemia, but with extensive history os cervical radiculopathy s/p decompression surgeries and fusion. Although TIA is on the differential here, cervical radiculitis is not off it. His ABCDsq score is 4 because his age and BP , however, his neurological deficit is weak for an ischemic event. Recommendations: 1. CD and Echo 2. Agree with aspirin 81mg daily for now. 3. Would only start statin if there is evidence for cardiovascular disease or high LDL/Tgs. 4. If BP still elevated tomorrow could start Lisinopril 10mg PO daily. 5, MRI brain to assess for diffusion positive lesions. YC Consult Acknowledgment - Thank you for your consult request.
[2016-07-04 22:36] VITALS: BP 142/88
[2016-07-05 07:59] VITALS: BP 132/78
--- NOTE | 2016-07-05 08:39 | PN- Housestaff ---
JESSICA LAMA,DOLLY 07/05/16 0839: Subjective Follow-up For: TIA Radiculopathy Complaints: mild tingling and numbness of the right hand Review of Systems Constitutional: Denies: no symptoms. Objective Last 24 Hrs of Vital Signs/I&O Vital Signs Date Time Temp Pulse Resp B/P Pulse O2 O2 Flow FiO2 Ox Delivery Rate 07/05 0759 97.7 65 18 132/78 97 Room Air 07/04 2236 98.0 63 18 142/88 96 Room Air 07/04 1850 98.3 74 18 142/90 96 Room Air 07/04 1846 Room Air 07/04 1818 97.4 68 18 166/90 97 Room Air Room Air Intake & Output 07/05 1600 07/05 0800 07/05 0000 Intake Total 800 600 400 Output Total 600 Balance 200 600 400 Intake, Oral 800 600 400 Output, Urine 600 Patient 104.326 kg Weight Physical Exam General Appearance: Alert, Oriented X3, Cooperative, No Acute Distress Skin: No Rashes, No Breakdown, No Significant Lesion HEENT: Atraumatic, PERRLA, EOMI Neck: Supple, No JVD, No thryomegaly Cardiovascular: Regular Rate, Normal S1, Normal S2 Lungs: Clear to Auscultation, Normal Air Movement Abdomen: Normal Bowel Sounds, Soft, No Tenderness, No Hepatospenomegaly Neurological: Normal Gait, Normal Speech, Strength at 5/5 X4 Ext, Normal Tone, Sensation Intact, Cranial Nerves 3-12 NL, Reflexes 2+ Extremities: No Clubbing, No Cyanosis, No Edema, Normal Pulses Assessment/Plan Assessment: Patient is a 61-year-old male with past medical history of hyperlipidemia on atorvastatin, Right L5-S1 Microdiscectomy (05/30/2003), Cervical radiculopathy s /p C5-C6 anterior cervical diskectomy and fusion (01/20/2012), presented with chief complaint of right arm and facial numbness from one day. Problem list - Radiculopathy Hyperlipidemia Right L5-S1 Microdiscectomy 05/30/2003 Cervical radiculopathy s/p C5-C6 anterior cervical diskectomy and fusion 2011 Vitals-stable Plan - Patient was complaining of slight tingling and numbness in the right hand. CTA does not show any dissection of vertebral/carotid arteries, echocardiogram is normal, MRI of head shows multiple chronic infarcts without any acute changes and MRI of the cervical spine shows Mild canal stenosis at C3-C4,C4-C5, and C6- C7. As the patient was not having any acute symptoms during hospital course and also cerebral infarct has been ruled out after getting MRI. We discharged him with advised of continue aspirin/atorvastatin and follow-up with the neurologist within a week of discharge or if any new symptoms arises for further management. We'll continue aspirin/atorvastatin at home doses. Problem List: 1. H/O microdiscectomy 2. Radiculopathy 3. Hyperlipidemia Pain Ratin Pain Location: right arm Pain Goal: Remain pain free Pain Plan: mild Tomorrow's Labs & Rationales: none DVT/Prophylaxis: mechanical ALEJANRDO OVIEDO MD 07/05/16 1010: Attending MD Review Statement Attending Statement Attending MD Statement: examined this patient, discuss w/resident/PA/BLOOD BANK TECHNICIAN, agreed w/resident/PA/BLOOD BANK TECHNICIAN, reviewed EMR data (avail), discussed with nursing, discussed with case mgmt Attending Assessment/Plan: Patient feels well. He hasn't had any more episodes of arm weakness. CTA was negative for any dissection of the vertebral carotid arteries, echocardiogram is normal and he is going to have an MRI today. If his MRI of his head is negative for any ischemic event an MRI of the neck doesn't show any radicular issues and the plan will be discharge with outpatient follow-up.
--- NOTE | 2016-07-05 12:10 | MRI REPORT ---
EXAMINATION: MRI BRAIN AND CERVICAL SPINE WITHOUT CONTRAST. CLINICAL INFORMATION: Question stroke. COMPARISON: CT head and cervical spine 07/04/2016. TECHNIQUE: Multiplanar MR imaging of the brain and cervical spine was performed without the intravenous administration of gadolinium contrast. FINDINGS: Brain: There are scattered foci of T2 FLAIR signal hyperintensity within the periventricular white matter that are most consistent with a chronic manifestation of small vessel ischemia. There is no acute territorial infarct. No pathological magnetic susceptibility artifact. Intracranial vascular flow voids including the major dural venous sinuses are preserved. There is no intracranial mass effect or midline shift. No abnormal extra-axial collection. Lateral and third ventricles are normal. No hydrocephalus. Midline structures including the cervicomedullary junction are normal. Bone marrow signal intensity is normal. There is no mastoid or middle ear effusion. Visualized paranasal sinuses are well aerated with the exception of trivial mucosal thickening within the ethmoid air cells. Globes and orbits are symmetric. Cervical spine: There are chronic postsurgical changes of an anterior cervical discectomy and fusion at C5-C6. There is nonspecific straightening of the cervical lordosis. Vertebral alignment is otherwise maintained in the sagittal dimension. Vertebral body heights are preserved. Bone marrow signal intensity is unremarkable. There is mild disc desiccation at multiple levels within the cervical spine without substantial loss of intervertebral disc height. The cervicomedullary junction is normal. The occipital condyles and lateral C1 masses are intact. The atlantodental joint is normal. C1-C2 articular facets are unremarkable. At C2-C3 the annular contour is normal. Mild arthrosis of the left C2-C3 articular facet joint. No canal stenosis and no substantial neuroforaminal encroachment. At C3-C4 there is a diffuse annular bulge. Mild congenital canal narrowing. There is bilateral uncovertebral joint hypertrophy and facet degenerative change causing mild left neuroforaminal encroachment. At C4-C5 there is a diffuse annular bulge. Mild congenital canal narrowing. There is asymmetric uncovertebral joint hypertrophy and facet degenerative change causing moderate left neuroforaminal encroachment. At C5-C6 there is no canal or neuroforaminal compromise. At C6-C7 there is a broad shallow right central protrusion superimposed upon underlying congenital canal narrowing. There is abutment along the ventral surface of the cervical cord without evidence of overt cord compression. There is uncovertebral joint hypertrophy and facet degenerative change causing moderate bilateral neuroforaminal encroachment. At C7-T1 there is a diffuse annular bulge. No canal or neuroforaminal compromise. Limited visualization of the soft tissues of the neck reveals no abnormal finding. IMPRESSION: Brain: There are numerous chronic small vessel ischemic changes within the periventricular white matter. No evidence of acute territorial infarct or hemorrhage. Cervical spine: There are bulging and/or protruding discs at multiple levels superimposed upon underlying congenital canal narrowing. Mild canal stenosis at C3-C4, C4-C5, and C6-C7. There is no cord compression or abnormal intramedullary signal changes. There are varying degrees of neuroforaminal encroachment related to uncovertebral joint hypertrophy and facet degenerative change as described above.
[2016-07-05] MEDS ORDERED: ASPIRIN81 M4 PO (13:32)
--- NOTE | 2016-07-05 13:40 | Patient Discharge Instructions ---
Discharge Instructions General Discharge Information You were seen/treated for: Tingling and numbness on right side of the face and arm, possible radiculopathy. 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 Please follow-up with a primary care provider for further management of hyperlipidemia. Please follow-up with your blood pressure. Diet Continue normal diet: No Recommended Diet: Heart Healthy Activity Full Activity/No Limits: No (as tolerated) Acute Coronary Syndrome Inclusion Criteria At DC or during hospital stay patient has or had the following: ACS DIAGNOSIS No Discharge Core Measures Meds if any: Prescribed or Continued at Discharge Meds if any: NOT Prescribed or Continued at Discharge Congestive Heart Failure Inclusion Criteria At DC or during hospital stay patient has or had the following: CHF DIAGNOSIS No Discharge Core Measures Meds if any: Prescribed or Continued at Discharge Meds if any: NOT Prescribed or Continued at Discharge Cerebrovascular accident Inclusion Criteria At DC or during hospital stay patient has or had the following: CVA/TIA Diagnosis Yes Discharge Core Measures Meds if any: Prescribed or Continued at Discharge Meds if any: NOT Prescribed or Continued at Discharge Venous thromboembolism Inclusion Criteria VTE Diagnosis No VTE Type NONE VTE Confirmed by (Test) NONE Discharge Core Measures - Per Current guidelines, there needs to be overlap - treatment for the first 5 days of Warfarin therapy. - If discharged on Warfarin prior to 5 days of - overlap therapy, the patient will need to be - assessed for post discharge needs including - *Post discharge parental anticoagulation - *Warfarin and/or parental anticoagulation education - *Follow up date to check INR post discharge At least 5 days overlap therapy as Inpatient No Meds if any: Prescribed or Continued at Discharge Warfarin No Note: Overlap Therapy is Warfarin and Anticoagulant Meds if any: NOT Prescribed or Continued at Discharge
--- NOTE | 2016-07-05 13:50 | Discharge Summary ---
Visit Information Visit Dates Admission Date: 07/04/16 Discharge Date: 07/05/2016 Hospital Course Course Attending Physician: PREET LAMA,ALEJANDRO Haley Primary Care Physician: GENNA COX DO Allergies: Coded Allergies: No Known Allergies (07/04/16) Disposition Summary Disposition Principal Diagnosis: Radiculopathy - cervical Additional Diagnosis: Hyperlipidemia Right L5-S1 Microdiscectomy 05/30/2003 Cervical radiculopathy s/p C5-C6 anterior cervical diskectomy and fusion Discharge Disposition: home or self care Discharge Instructions General Discharge Information Code Status: Full Code Patient's Diet: Heart healthy diet Patient's Activity: As tolerated Follow-Up Instructions/Appts: Please follow-up with Dr. 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 Please follow-up with a primary care provider for further management of hyperlipidemia. Please follow-up with your blood pressure. Medications at Discharge Discharge Medications: Stop taking the following medications: Diclofenac Sodium (Diclofenac Sodium) 75 MG TABLET.DR ORAL NEEDED as needed for ARTHRITIS Qty = 60 Continue taking these medications: Simvastatin (Simvastatin*) 20 MG TABLET 1 Tablet ORAL Every night Qty = 30 Start taking the following new medications: Aspirin (Aspirin*) 81 MG TAB.CHEW 81 Milligram ORAL DAILY Days = 30 No Refills Copies To: SVITLANA LAMA,REINA; PREET LAMA,ALEJANDRO Haley Attending MD Review Statement Documenting Attending: ALEJANDRO OVIEDO MD
--- NOTE | 2016-07-13 23:59 | Discharge Summary ---
Visit Information Visit Dates Admission Date: 07/04/16 Discharge Date: 07/05/16 Hospital Course Course Attending Physician: PREET LAMA,ALEJANDRO Haley Primary Care Physician: GENNA COX DO Hospital Course: Patient is a 61-year-old male with past medical history of hyperlipidemia on atorvastatin, Right L5-S1 Microdiscectomy (05/30/2003), Cervical radiculopathy s /p C5-C6 anterior cervical diskectomy and fusion (01/20/2012), presented with chief complaint of right arm and facial numbness from one day. Vital signs at the time of admission -temperature 90.7, pulse 70, respiratory rate 20, blood pressure 157/90, SPO2 96% on room air. 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 They advised carotid Doppler, echocardiogram,and MRI of the brain.They also advised to start the patient on aspirin 81 milligrams, statin and if BP allows than start him on lisinopril 10 milligrams by mouth daily. His echocardiogram doesn't show any signs of ischemia or embolization, carotid Doppler doesn't show any signs of atherosclerotic disease or hemodynamically significant ICA stenosis.MRI of his head was negative for any acute ischemic event. As the patient was not having any acute infarct. We discharged him with advise to follow-up with Dr. 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 Hyperlipidemia We continued the patient on atorvastatin 20 milligrams, and advised to follow-up with his PCP for further management Allergies: Coded Allergies: No Known Allergies (07/04/16) Disposition Summary Disposition Principal Diagnosis: Cervical Radiculopathy under evaluation Additional Diagnosis: Hyperlipidemia Right L5-S1 Microdiscectomy 05/30/2003 Cervical radiculopathy s/p C5-C6 anterior cervical diskectomy and fusion 2011 Discharge Disposition: home or self care Discharge Instructions General Discharge Information Code Status: Full Code Patient's Diet: Heart healthy diet Patient's Activity: As tolerated Follow-Up Instructions/Appts: Please follow-up with Dr. 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 Please follow-up with a primary care provider for further management of hyperlipidemia. Please follow-up with your blood pressure. Medications at Discharge Discharge Medications: Stop taking the following medications: Diclofenac Sodium (Diclofenac Sodium) 75 MG TABLET.DR ORAL NEEDED as needed for ARTHRITIS Qty = 60 Continue taking these medications: Simvastatin (Simvastatin*) 20 MG TABLET 1 Tablet ORAL Every night Qty = 30 Comments: NOT GIVEN Start taking the following new medications: Aspirin (Aspirin*) 81 MG TAB.CHEW 81 Milligram ORAL DAILY Days = 30 No Refills Comments: Last Taken:07/05/16 Time:9AM Copies To: SVITLANA LAMA,REINA; PREET LAMA,CECILIO Zuniga; GENNA COX DO Attending MD Review Statement Documenting Attending: PREET LAMA,ALEJANDRO Haley
== END 2016-07-05 14:52 ==
LOC: ENRESERVDT → ENRESERVTM → ERH 12:22 → ENPENDDIS 15:23 → 1NO 15:23 → ERHI 15:23 → ERH 15:23 → EDBEDREQ 15:46 → EDBEDREQTM 16:12 → 1NO 18:32
PROVIDERS: Emergency Medicine; ADMIT Internal Medicine
DX: G45.9 Transient cerebral ischemic attack, unspecified (principal); E78.5 Hyperlipidemia, unspecified; R42 Dizziness and giddiness; I10 Essential (primary) hypertension
CPT/HCPCS: 2000; 6020; 70551; 72141; 93005; 93010; 93306; 96372; 96374; G0378; J1650; J3490